=== PATIENT | male | born 1960 | race Caucasian/White ===

== ENCOUNTER 2017-11-22 20:09 | Emergency (ER) | payer OTHER ==
[2017-11-22] MEDS ORDERED: Doxycycline 100 MG in Sodium Chloride 0.9% 100 ML IV ONE (20:37)
[2017-11-22] MEDS ORDERED: HYDROmorphone 0.5 MG/0.5 ML SYRINGE IVPUSH ONE (20:38)
--- NOTE | 2017-11-22 20:40 | EDM.PDOC ---
ED HPI GENERAL MEDICAL PROBLEM - General Chief Complaint: Upper Extremity Injury/Pain Stated Complaint: ARM PAIN Time Seen by Provider: 11/22/17 20:23 Source of Information: Reports: Patient History Limitations: Reports: No Limitations - History of Present Illness INITIAL COMMENTS - FREE TEXT/NARRATIVE: Patient is a 57 y/o male who presents to the E.D. who presents to the E.D. complaining of pain to the left forearm with increased redness noted. Patient was diagnosed with a blood clot to his left forearm was started on xarelto and doxycycline. He received linezolid IV while in the E.D. Since being discharged he has had no documented fever. States he still feels rough but is able to eat and drink as usual. Pain to the left arm has persisted with no significant change. today he has noticed increased redness to the dorsal/medial/forearm extending just above the elbow. No streaking noted. He remains to have limited range of motion due to pain. HE denies fever, n/v, cp, sob, n/t, or any additional complaints. Left Lower Arm Pain Score (Numeric/FACES): 4 - Related Data Allergies Allergy/AdvReac Type Severity Reaction Status Date / Time No Known Allergies Allergy Verified 11/21/17 18:08 Home Meds: Home Meds ARIPiprazole [Abilify] 5 mg PO DAILY 11/21/17 [History] Doxycycline [Vibramycin] 100 mg PO BID #28 tab 11/21/17 [Rx] Rivaroxaban [Xarelto] 15 mg PO BID #42 tablet 11/21/17 [Rx] Rivaroxaban [Xarelto] 20 mg PO DAILY #21 tablet 11/21/17 [Rx] Past Medical History Psychiatric History: Reports: Depression - Past Surgical History Musculoskeletal Surgical History: Reports: Other (See Below) Social & Family History - Tobacco Use Smoking Status *Q: Never Smoker - Caffeine Use Caffeine Use: Reports: Energy Drinks, Soda - Recreational Drug Use Recreational Drug Use: No - Living Situation & Occupation Living situation: Reports: Occupation: Employed Review of Systems - Review of Systems Review Of Systems: See Below Constitutional: Denies: Chills, Fever Respiratory: Reports: No Symptoms Cardiovascular: Reports: No Symptoms GI/Abdominal: Reports: No Symptoms Skin: Reports: Erythema (increased erythema noted to the anterior/posterior/ medial aspect of the forearm that extends just above the elbow along the medial side. No sensory changes noted.) ED EXAM, GENERAL - Physical Exam Exam: See Below Exam Limited By: No Limitations General Appearance: Alert, WD/WN, No Apparent Distress Nose: Normal Inspection Throat/Mouth: Normal Voice, No Airway Compromise Neck: Normal Inspection, Supple, Non-Tender, Full Range of Motion Respiratory/Chest: No Respiratory Distress, Lungs Clear, Normal Breath Sounds, No Accessory Muscle Use, Chest Non-Tender Cardiovascular: Normal Peripheral Pulses, Regular Rate, Rhythm, No Murmur Peripheral Pulses: 2+: Radial (L), Radial (R) GI/Abdominal: Normal Bowel Sounds, Soft, Non-Tender Extremities: Other (left upper/lower arm pain with increased pain with palpation and movement of the forearm. No redness streaking up his arm. ) Neurological: Alert, Oriented, CN II-XII Intact, Normal Cognition, No Motor/ Sensory Deficits Psychiatric: Normal Affect, Normal Mood Skin Exam: Warm, Intact, Erythema Course - Vital Signs Last Recorded V/S: Last Vital Signs Temp 99.1 F 11/22/17 20:19 Pulse 81 11/22/17 20:19 Resp 20 11/22/17 20:19 BP 127/77 11/22/17 20:19 Pulse Ox 96 11/22/17 20:19 - Orders/Labs/Meds Labs: Laboratory Tests 11/22/17 11/22/17 Range/Units 20:49 20:49 WBC 8.43 (4.23-9.07) K/mm3 RBC 5.01 (4.63-6.08) M/mm3 Hgb 13.8 (13.7-17.5) gm/L Hct 41.9 (40.1-51.0) % MCV 83.6 (79.0-92.2) fl MCH 27.5 (25.7-32.2) pg MCHC 32.9 (32.2-35.5) g/dl RDW Std Deviation 44.6 H (35.1-43.9) fL Plt Count 285 (163-337) K/mm3 MPV 8.8 L (9.4-12.3) fl Neutrophils % (Manual) 80 H (40-60) % Band Neutrophils % 0 (0-10) % Lymphocytes % (Manual) 11 L (20-40) % Atypical Lymphs % 0 % Monocytes % (Manual) 8 (2-10) % Eosinophils % (Manual) 0 L (0.8-7.0) % Basophils % (Manual) 1 (0.2-1.2) Platelet Estimate Adequate Plt Morphology Comment Normal RBC Morph Comment Normal Sodium 144 (136-145) mEq/L Potassium 3.9 (3.5-5.1) mEq/L Chloride 108 H (98-107) mEq/L Carbon Dioxide 27 (21-32) mEq/L Anion Gap 12.9 (5-15) BUN 16 (7-18) mg/dL Creatinine 1.3 (0.7-1.3) mg/dL Est Cr Clr Drug Dosing 61.38 mL/min Estimated GFR (MDRD) 57 (>60) mL/min BUN/Creatinine Ratio 12.3 L (14-18) Glucose 122 H (74-106) mg/dL Calcium 8.6 (8.5-10.1) mg/dL Total Bilirubin 0.3 (0.2-1.0) mg/dL AST 21 (15-37) U/L ALT 30 (16-63) U/L Alkaline Phosphatase 78 (46-116) U/L C-Reactive Protein 7.3 H* (<1.0) mg/dL Total Protein 7.2 (6.4-8.2) g/dl Albumin 3.2 L (3.4-5.0) g/dl Globulin 4.0 gm/dL Albumin/Globulin Ratio 0.8 L (1-2) Meds: Medications Discontinued Medications Generic Name Dose Route Start Last Admin Trade Name Freq PRN Reason Stop Dose Admin Hydromorphone HCl 0.5 mg 11/22/17 20:38 11/22/17 20:51 Dilaudid IVPUSH 11/22/17 20:39 0.5 mg ONETIME ONE Administration Doxycycline Hyclate 100 mg/ 100 mls @ 100 mls/hr 11/22/17 20:37 11/22/17 20: 51 Sodium Chloride IV 11/22/17 21:36 100 mls/hr ONETIME ONE Administration - Re-Assessments/Exams Free Text/Narrative Re-Assessment/Exam: Review previous ED visit dated 11/21/2017. Preliminary blood cultures are negative. Ultrasound of the left upper extremity revealed thrombus throughout the basilic vein extending minimally down into the forearm but not up into the axilla. Initial labs and studies include: CBC, chem 14, CRP. IV established with doxycycline 100 mg IV along with Dilaudid 0.5 mg IV. Labs reviewed: White blood cell count normal at 8.43, hemoglobin 13.8, platelet count 285. Chemistry panel is essentially normal. CRP 7.3. This has decreased from 7.9 from yesterday. IV doxycycline is in. We will discharge the patient home with instructions as documented. No further workup or treatment required at this point. He'll continue on the oral doxycycline as prescribed. Discharge instructions as documented. The patient remained hemodynamically stable while under my care in the E.D. I discussed the concerning symptoms for which to returnto the E.D. with the patient/family. The patient/family verbalized understanding. All questions were answered. Departure - Departure Time of Disposition: 21:55 Disposition: Home, Self-Care 01 Condition: Good Clinical Impression: Cellulitis of left forearm DVT of upper extremity (deep vein thrombosis) Qualifiers: Affected thrombotic vein of extremity: brachial Chronicity: acute Laterality: left Qualified Code(s): I82.622 - Acute embolism and thrombosis of deep veins of left upper extremity - Discharge Information Instructions: Cellulitis, Adult, Deep Vein Thrombosis Referrals: PCP,None [Primary Care Provider] - Forms: ED Department Discharge Additional Instructions: Continue taking the doxycycline as prescribed. You may utilize ibuprofen 600 mg every 6 hours for discomfort. He should notice significant improvements over the next 24-48 hours. Please follow up with your PCP at conclusion of antibiotic therapy to ensure resolution. Please return back to the ED if you develop any new or worsening symptoms. No driving this evening since receiving a sedative medication.
== END 2017-11-22 22:20 | disposition home or self-care (01) ==
LOC: JD.ED 20:09
DX: L03.114 Cellulitis of left upper limb (principal); I82.622 Acute embolism and thrombosis of deep veins of left upper extremity
CPT/HCPCS: 36415; 80053; 85007; 85027; 86140; 96365; 96375; 99283; J1170; J3490; J7030; 99284